=== PATIENT | female | born 1965 | race Caucasian/White ===

== ENCOUNTER → 2020-05-16 | Outpatient (CLI) | payer OTHER | LOC: CT 07:29 | DX: R10.32 Left lower quadrant pain (principal) | CPT/HCPCS: Q9967 ==

== ENCOUNTER 2020-11-15 16:13 | Emergency (ER) | payer SELFPAY ==
[2020-11-15 17:04] LABS: HEMOGLOBIN 14.7 gm/dl (12.3-15.3); RED BLOOD COUNT 3.6 M/UL (4.00-5.10); WHITE BLOOD COUNT 10.8 K/UL (4.5-11.0)
[2020-11-15 17:33] LABS: BUN/CREATININE RATIO 24 (0-10)
== END 2020-11-15 19:40 | disposition home or self-care (01) ==
LOC: ER1 16:13
PROVIDERS: Physician Assistant
DX: R10.12 Left upper quadrant pain (principal); R10.32 Left lower quadrant pain; K92.1 Melena
CPT/HCPCS: 80053; 81001; 83690; 85025; 99284